=== PATIENT | female | born 2005 | race Caucasian/White ===

== ENCOUNTER 2025-08-10 21:48 | Emergency (ER) | payer OTHER ==
[2025-08-10 22:52] LABS: #Basophils 0.04 10x3/uL (0.0-0.2); #Eosinophils 0.06 10x3/uL (0.0-0.5); #Monocytes 0.66 10x3/uL (0.0-1.1); #Neutrophils 6.85 10x3/uL (1.5-8.4); %Basophils 0.4 % (0.0-2.0); %Eosinophils 0.6 % (0.0-6.0); %Lymphocytes 22.5 % (18.0-47.0); %Monocytes 6.7 % (0.0-10.0); %Neutrophils 69.5 % (40.0-75.0); Hematocrit 35.7 % (34.9-44.5); Hemoglobin 11.9 g/dL (12.0-15.5); Mean Corpuscular Hemoglobin 27.7 pg (27.0-33.0); Mean Corpuscular Volume 83.0 fL (81.6-98.3); Platelet Count 263 10x3/uL (150-450); Red Blood Cell (RBC) Count 4.30 10x6/uL (3.90-5.03); White Blood Cell (WBC) Count 9.86 10x3/uL (3.5-10.5)
[2025-08-10] MEDS ORDERED: diphenhydrAMINE 50 MG/ML VIAL ONE (22:53)
[2025-08-10] MEDS ORDERED: Ketorolac Tromethamine 30 MG (1 mL) VIAL ONE (22:54)
[2025-08-10] MEDS ORDERED: Prochlorperazine 10 MG/2 ML VIAL ONE (22:54)
[2025-08-10 23:13] LABS: ALT (SGPT) 9 U/L (Less than 34); AST (SGOT) 17 U/L (11-34); Albumin 4.2 g/dL (3.1-4.5); Alkaline Phosphatase 43 U/L (40-110); Anion Gap 13 mmol/L (10-20); BUN (Urea Nitrogen) 11 mg/dL (7.0-18.7); Bilirubin, Total 0.3 mg/dL (0.3-1.2); Calc. Creatinine Clearance 0 mL/min (70-130); Calcium 9.1 mg/dL (7.8-10.44); Carbon Dioxide 24 mmol/L (22-29); Chloride 106 mmol/L (98-107); Globulin 3.0 g/dL (2.4-3.5); Glucose 105 mg/dL (70-105); Lipase 24 U/L (8-78); Potassium 3.8 mmol/L (3.5-5.1); Sodium 139 mmol/L (136-145)
[2025-08-10 23:42] LABS: Glucose, Urine (Dipstick) Normal (Negative); Leukocyte Negative (Negative); Protein, Urine (Dipstick) Negative (Neg-Trace); Specific Gravity, Urine 1.010 (1.005-1.030)
[2025-08-11 00:05] LABS: CAUTI Indications for Culture Pelvic or flank pain; RBC/HPF 0-3 HPF (0-3); WBC/HPF 0-3 HPF (0-3)
[2025-08-11 00:06] LABS: Bacteria/HPF 1+ HPF (None Seen); Urine Culture Reflex No No
[2025-08-11 00:11] LABS: Pregnancy Test - Urine (BHCG) Negative (Negative); Pregu Control Background? CLEAR/WHITE (CLR/WHITE); Pregu Control Bar Appear? YES (CONTROL BAR)
== END 2025-08-11 01:40 | disposition home or self-care (01) ==
LOC: CSHERS 21:48
DX: R10.9 Unspecified abdominal pain (principal); K59.00 Constipation, unspecified; F17.290 Nicotine dependence, other tobacco product, uncomplicated
CPT/HCPCS: 36415; 74176; 80053; 81001; 81025; 83690; 85025; 96374; 96375; J0780; J1200; J1885